=== PATIENT | male | born 1960 | race Caucasian/White ===

== ENCOUNTER 2016-07-21 14:15 | Inpatient (IN) | payer SELFPAY ==
[~2016-07-21] VITALS: Ht 180.3 cm; Wt 97.7 kg
[2016-07-21 15:32] LABS: BASOPHIL COUNT 0.1 K/uL (0-0.1); EOSINOPHIL (%) 2.7 % (0-5); EOSINOPHIL COUNT 0.2 K/uL (0-0.3); HEMATOCRIT 34.6 % (38.0-50.0); IMMATURE GRANULOCYTE (%) 0.6 % (0.0-0.7); IMMATURE GRANULOCYTE COUNT 0.1 K/uL; INSTRUMENT ABS NEUTROPHIL CT 5.4 K/uL; LYMPHOCYTE COUNT 2.1 K/uL (1.0-2.8); MCH 35.2 PG (29.0-34.0); MCHC 34.1 G/DL (30.0-36.0); MCV 103.3 FL (86-99); MONOCYTE (%) 8.2 % (3-12); MONOCYTE COUNT 0.7 K/uL (0-0.8); NEUTROPHIL COUNT 5.4 K/uL (1.8-6.4); PLATELET COUNT 148 K/uL (156-360); RBC DIS.WIDTH-CV 12.5 % (11.8-14.6); RBC DIS.WIDTH-SD 46.4 % (39-53); RED BLOOD COUNT 3.35 M/uL (4.00-5.50); WHITE BLOOD COUNT 8.6 K/uL (4.1-10.2)
[2016-07-21 15:41] LABS: INTER. NORMALIZED RATIO 1.2; PROTHROMBIN TIME 11.9 (9.2-11.2); PTT 25.5 (25-32)
[2016-07-21 16:01] LABS: ALKALINE PHOSPHATASE 35 IU/L (3-129); ANION GAP 8 MEQ/L (2-14); CHLORIDE 106 MEQ/L (99-109); GFR ESTIMATE (CALCULATED) > 59 mL/min/; GLUCOSE 120 mg/dL (70-99); POTASSIUM 4.3 MEQ/L (3.7-5.4); SAMPLE HEMOLYSIS CHECK 0; SAMPLE ICTERIC CHECK 0; SAMPLE LIPEMIA CHECK 0; SODIUM 138 MEQ/L (136-147); TOTAL BILIRUBIN 0.4 MG/DL (0.0-1.0); UREA NITROGEN (BUN) 32 mg/dL (9-23)
[2016-07-21 16:05] LABS: TROP-I INTERPRETATION NEGATIVE; TROPONIN-I 0.01 ng/mL (0.0-0.30)
[2016-07-21] MEDS ORDERED: CITALOPRAM HBR20 MG PO (16:56)
[2016-07-21] MEDS ORDERED: ADVIL,NUPRIN,M200 MG PO (16:57)
[2016-07-21] MEDS ORDERED: LO-DOSE ASPIRIN81 M1 PO (16:57)
[2016-07-21 19:07] LABS: HEMATOCRIT 33.2 % (38.0-50.0); MCH 35.1 PG (29.0-34.0); MCHC 33.7 G/DL (30.0-36.0); MCV 104.1 FL (86-99); PLATELET COUNT 151 K/uL (156-360); RBC DIS.WIDTH-CV 12.5 % (11.8-14.6); RBC DIS.WIDTH-SD 47.4 % (39-53); RED BLOOD COUNT 3.19 M/uL (4.00-5.50); WHITE BLOOD COUNT 10.3 K/uL (4.1-10.2)
[2016-07-21 21:06] VITALS: BP 128/76
[2016-07-21 21:24] LABS: IRON 269 MCG/DL (35-150)
[2016-07-21 23:21] LABS: HEMATOCRIT 31.1 % (38.0-50.0); MCV 105.4 FL (86-99)
[2016-07-21 23:34] VITALS: BP 107/65
[2016-07-22 03:44] VITALS: BP 116/69
[2016-07-22 06:57] LABS: INTER. NORMALIZED RATIO 1.2; PROTHROMBIN TIME 11.8 (9.2-11.2); PTT 25.3 (25-32)
[2016-07-22 07:07] LABS: ANION GAP 7 MEQ/L (2-14); CHLORIDE 109 MEQ/L (99-109); GFR ESTIMATE (CALCULATED) > 59 mL/min/; GLUCOSE 124 mg/dL (70-99); POTASSIUM 4.2 MEQ/L (3.7-5.4); SAMPLE HEMOLYSIS CHECK 0; SAMPLE ICTERIC CHECK 0; SAMPLE LIPEMIA CHECK 0; SODIUM 142 MEQ/L (136-147); UREA NITROGEN (BUN) 32 mg/dL (9-23)
[2016-07-22 08:20] VITALS: BP 117/69
[2016-07-22 13:04] VITALS: BP 122/73
[2016-07-22 16:09] VITALS: BP 121/69
[2016-07-22 20:00] VITALS: BP 109/63
[2016-07-23] VITALS (22 sets, daily range): BP systolic 92–137; BP diastolic 62–85
[2016-07-23 08:34] LABS: HEMATOCRIT 14.5 % (38.0-50.0); MCH 35.8 PG (29.0-34.0); MCHC 33.1 G/DL (30.0-36.0); MCV 108.2 FL (86-99); MEAN PLAT.VOLUME 11.1 uM^3 (9.0-12.4); NRBC (%) 0.2 /100 WBC (0-0); PLATELET COUNT 121 K/uL (156-360); RBC DIS.WIDTH-CV 13.6 % (11.8-14.6); RBC DIS.WIDTH-SD 52.2 % (39-53); RED BLOOD COUNT 1.34 M/uL (4.00-5.50); WHITE BLOOD COUNT 9.3 K/uL (4.1-10.2)
[2016-07-23 09:00] LABS: ANION GAP 7 MEQ/L (2-14); CHLORIDE 115 MEQ/L (99-109); GFR ESTIMATE (CALCULATED) > 59 mL/min/; GLUCOSE 151 mg/dL (70-99); POTASSIUM 3.9 MEQ/L (3.7-5.4); SAMPLE HEMOLYSIS CHECK 0; SAMPLE ICTERIC CHECK 0; SAMPLE LIPEMIA CHECK 0; SODIUM 143 MEQ/L (136-147); UREA NITROGEN (BUN) 37 mg/dL (9-23)
[2016-07-23 16:02] LABS: HEMATOCRIT 19.5 % (38.0-50.0)
[2016-07-23 21:01] LABS: METH RESISTANT S AUREUS PCR NEGATIVE (NEGATIVE)
[2016-07-23 21:19] LABS: PROBE CHECK PASS; SPECIMEN PROCESSING CONTROL PASS
== END 2016-07-23 20:50 | disposition short-term general hospital (02) | DRG 378 ==
LOC: EME 14:15 → EDOF 18:40 → 5SOUTH 18:40 → 4WEST 07-23 19:23
PROVIDERS: Emergency Medicine; Hospitalist; Internal Medicine Gastroenterology; Internal Medicine Nephrology; Nurse Practitioner Adult Health
PROC: 0DJ08ZZ Inspection of Upper Intestinal Tract, Via Natural or Artificial Opening Endoscopic (ICD-10-PCS; principal; 2016-07-23)
PROC: 30233N1 Transfusion of Nonautologous Red Blood Cells into Peripheral Vein, Percutaneous Approach (ICD-10-PCS; principal; 2016-07-23)
DX: K92.2 Gastrointestinal hemorrhage, unspecified (principal); K92.1 Melena; D62 Acute posthemorrhagic anemia; K27.9 Peptic ulcer, site unspecified, unspecified as acute or chronic, without hemorrhage or perforation; G89.29 Other chronic pain; M54.9 Dorsalgia, unspecified; M19.90 Unspecified osteoarthritis, unspecified site; R79.89 Other specified abnormal findings of blood chemistry; F41.9 Anxiety disorder, unspecified; D53.9 Nutritional anemia, unspecified; D69.6 Thrombocytopenia, unspecified; R53.1 Weakness; R10.9 Unspecified abdominal pain; I70.0 Atherosclerosis of aorta; K70.0 Alcoholic fatty liver; Z88.1 Allergy status to other antibiotic agents; F10.10 Alcohol abuse, uncomplicated
CPT/HCPCS: 71010; 74177; 80048; 80053; 82607; 82746; 83540; 83735; 84443; 84466; 84484; 85014; 85018; 85025; 85027; 85610; 85730; 86900; 86901; 86920; 87641; 93005; 99281; 99285; C9113; J3010; J3411; J7030; P9016; P9035